=== PATIENT | female | born 1955 | race Caucasian/White ===

== ENCOUNTER 2017-08-21 23:24 | Observation (INO) | payer OTHER ==
[2017-08-21] MEDS ORDERED: Xopenex 1.25 MG/0.5 ML UD NEBULE IH ONE (23:42)
[2017-08-21] MEDS ORDERED: BABY ASPIRIN 81 MG CHEW PO ONE (23:44)
[2017-08-21] MEDS ORDERED: Nitrostat 0.4 MG (ED) SL ONE ×2 (23:44→23:56)
[2017-08-21] MEDS ORDERED: Lactated Ringers 1,000 ML IV SCH (23:45)
--- NOTE | 2017-08-21 23:49 | ERPHSYRPT ---
- History of Present Illness Time Seen by Provider: 08/21/17 23:34 Source: patient Exam Limitations: no limitations Physician History: FOR THE PAST 20 MINUTES PT HAS HAD THROBBING MID ANTERIOR CHEST PAIN RADIATING TO THE BACK, BOTH EARS AND THE JAW WITH SHORTNESS OF AIR AND COUGH. PT DENIES FEVER, NAUSEA, VOMITING, ABDOMINAL PAIN. Allergies/Adverse Reactions: codeine Allergy (Verified 08/22/17 01:27) Penicillins Allergy (Verified 08/22/17 01:27) Sulfa (Sulfonamide Antibiotics) Allergy (Verified 08/22/17 01:27) PTU Allergy (Uncoded 08/22/17 01:27) Home Medications: Calcium Carbonate/Vitamin D3 [Calcium 500-Vit D3 200 Caplet] 1 each PO DAILY 05/25 [History] Diazepam 5 mg [Valium 5 MG] 5 mg PO DAILY 01/22/13 [History] Ergocalciferol (Vitamin D2) [Vitamin D2] 50,000 unit PO Q7D 01/22/13 [History] Levothyroxine Sodium 75 Mcg [Synthroid 75 Mcg] 75 mcg PO DAILY 01/22/13 [ History] Multivits,Th W-Ca,Fe,Oth Min [Spectravite] 1 each PO DAILY 01/22/13 [History] Hx Tetanus, Diphtheria Vaccination/Date Given: Yes Hx Influenza Vaccination/Date Given: No Hx Pneumococcal Vaccination/Date Given: No - Review of Systems Constitutional: No Fever Respiratory: Cough, Dyspnea Cardiac: Chest Pain Abdominal/Gastrointestinal: No Abdominal Pain, No Nausea, No Vomiting Neurological: No Headache All Other Systems: Reviewed and Negative - Past Medical History Pertinent Past Medical History: Yes Neurological History: No Pertinent History ENT History: No Pertinent History Cardiac History: High Cholesterol, Hypertension Respiratory History: Bronchitis Endocrine Medical History: Hyperthyroidism Musculoskeletal History: Arthritis, Degenerative Disk Disease, Osteoporosis GI Medical History: GERD Psycho-Social History: Anxiety Female Reproductive Disorders: No Pertinent History Other Medical History: THYROID STORM 03/2010 - Past Surgical History Past Surgical History: Yes Neuro Surgical History: No Pertinent History Cardiac: No Pertinent History Respiratory: No Pertinent History Gastrointestinal: Appendectomy Genitourinary: No Pertinent History Musculoskeletal: No Pertinent History Female Surgical History: Tubal Ligation Other Surgical History: TA THYROID RADIATION - Social History Smoking Status: Current every day smoker How long have you smoked: 40 years Exposure to second hand smoke: No Drug Use: none Patient Lives Alone: No - Nursing Vital Signs Nursing Vital Signs: Initial Vital Signs Temperature 97.3 F 08/21/17 23:38 Pulse Rate 84 08/21/17 23:38 Respiratory Rate 20 08/21/17 23:38 Blood Pressure 170/79 08/21/17 23:38 O2 Sat by Pulse Oximetry 99 08/21/17 23:38 Pain Scale Pain Intensity 0 - Physical Exam General Appearance: alert Eye Exam: PERRL/EOMI Ears, Nose, Throat Exam: TMs normal, moist mucous membranes, pharyngeal erythema Neck Exam: normal inspection Respiratory Exam: chest tenderness (MILD MID ANTERIOR CHEST TENDERNESS), wheezing (MINIMAL EXPIRATORY WHEEZING OVER POSTERIOR BASES) Cardiovascular Exam: normal heart sounds Gastrointestinal/Abdomen Exam: soft, normal bowel sounds Back Exam: normal range of motion Extremity Exam: pedal edema (+1 EDEMA OF LEFT FOOT) Neurologic Exam: alert, cooperative Skin Exam: warm, dry - Course Nursing assessment & vital signs reviewed: Yes EKG Interpreted by Me: RATE ([id number]), Sinus Rhythm, NORMAL AXIS, NORMAL INTERVALS - Radiology Exams Chest X-ray Interpretation: Interpreted by me, No Pneumonia Ordered Tests: Active Orders 24 hr Category Date Time Status IV Insertion STAT Care 08/21/17 23:42 Active Oxygen-ED Only NASAL CANNULA 2 lpm Care 08/21/17 23:42 Active CHEST 1 VIEW (PORTABLE) Stat Exams 08/21/17 23:42 Taken AMYLASE Stat Lab 08/21/17 23:52 Completed CBC W DIFF Stat Lab 08/21/17 23:52 Completed CMP Stat Lab 08/21/17 23:52 Completed LIPASE Stat Lab 08/21/17 23:52 Completed MAGNESIUM Stat Lab 08/21/17 23:52 Completed NT PRO BNP Stat Lab 08/21/17 23:52 Completed T4 Stat Lab 08/21/17 23:52 Completed TROPONIN Q3H Lab 08/21/17 23:52 Completed TROPONIN Q3H Lab 08/22/17 02:45 Ordered TROPONIN Q3H Lab 08/22/17 05:45 Ordered TROPONIN Q3H Lab 08/22/17 08:45 Ordered TROPONIN Q3H Lab 08/22/17 11:45 Ordered TSH [TSH, 3RD Generation] Stat Lab 08/21/17 23:52 Completed UA W/ MICROSCOPIC Stat Lab 08/21/17 01:18 Completed Medication Summary Generic Name Dose Route Start Last Admin Trade Name Roly PRN Reason Stop Dose Admin Lactated Ringer's 1,000 mls @ 100 mls/hr 08/21/17 23:45 08/21/17 23:58 Lactated Ringers IV 09/20/17 23:44 100 mls/hr .Q10H SP Administration Discontinued Medications Generic Name Dose Route Start Last Admin Trade Name Roly PRN Reason Stop Dose Admin Aspirin 324 mg 08/21/17 23:44 08/21/17 23:59 Baby Aspirin 81 Mg Chew PO 08/21/17 23:45 324 mg STAT ONE Administration Aspirin Confirm 08/21/17 23:56 Baby Aspirin 81 Mg Chew Administered 08/21/17 23:57 Dose 324 mg .ROUTE .STK-MED ONE Levalbuterol HCl 1.25 mg 08/21/17 23:42 Xopenex 1.25 Mg/0.5 Ml Ud Nebule IH 08/21/17 23:43 STAT ONE Levalbuterol HCl Confirm 08/22/17 01:16 Xopenex 1.25 Mg/0.5 Ml Ud Nebule Administered 08/22/17 01:17 Dose 1.25 mg IH .STK-MED ONE Nitroglycerin 0.4 mg 08/21/17 23:44 08/21/17 23:59 Nitrostat 0.4 Mg (Ed) SL 08/21/17 23:45 0.4 mg STAT ONE Administration Nitroglycerin Confirm 08/21/17 23:56 Nitrostat 0.4 Mg (Ed) Administered 08/21/17 23:57 Dose 0.4 mg SL .STK-MED ONE Sodium Chloride Confirm 08/22/17 01:16 Sodium Chloride 3 Ml Ud Nebules Administered 08/22/17 01:17 Dose 3 ml IH .STK-MED ONE Lab/Rad Data: Laboratory Result Diagrams 08/21/17 23:52 08/21/17 23:52 Laboratory Results 08/21/17 08/21/17 08/21/17 Range/Units 23:52 23:52 23:52 WBC (4.0-10.5) K/mm3 RBC (4.1-5.4) M/mm3 Hgb (12.0-16.0) gm/dl Hct (35-47) % MCV (78-100) fl MCH (26-32) pg MCHC (32-36) g/dl RDW (11.5-14.0) % Plt Count (150-450) K/mm3 MPV (6-9.5) fl Gran % (36.0-66.0) % Lymphocytes % (24.0-44.0) % Monocytes % (0.0-12.0) % Eosinophils % (0.00-5.0) % Basophils % (0.0-0.4) % Basophils # (0-0.4) Sodium 140 (137-145) mmol/L Potassium 4.0 (3.5-5.1) mmol/L Chloride 103 (98-107) mEq/L Carbon Dioxide 27 (22-30) mmol/L Anion Gap 13.9 (5-15) MEQ/L BUN 18 H (7-17) mg/dl Creatinine 1.06 H (0.52-1.04) mg/dl Estimated GFR 56 ML/MIN Glucose 124 H (74-106) mg/dL Calcium 9.2 (8.4-10.2) mg/dL Magnesium 2.3 (1.6-2.3) mg/dL Total Bilirubin 0.20 (0.2-1.3) mg/d? AST 71 H (14-36) U/L ALT 72 H (0-35) U/L Alkaline Phosphatase 174 H (38-126) U/L Troponin I < 0.012 (0.000-0.034) ng/ml NT-Pro-B Natriuret Pep 47.9 (0-900) pg/ml Serum Total Protein 6.9 (6.3-8.2) mg/dl Albumin 3.8 (3.5-5.0) g/dl Amylase 64 (30-110) U/L Lipase 77 (23-300) U/L Thyroxine (T4) 8.84 (5.53-10.96) ug/dL TSH 3rd Generation 4.020 (0.47-4.68) mIU/L Ur Collection Type Urine Color (YELLOW) Urine Appearance (CLEAR) Urine pH (5-6) Ur Specific [place] (1.005-1.025) Urine Protein (Negative) Urine Ketones (NEGATIVE) Urine Blood (0-5) Naren/ul Urine Nitrite (NEGATIVE) Urine Bilirubin (NEGATIVE) Urine Urobilinogen (0-1) mg/dL Ur Leukocyte Esterase (NEGATIVE) Urine Microscopic RBC (0-2) /HPF Urine Microscopic WBC (0-5) /HPF Ur Epithelial Cells (FEW) /HPF Urine Bacteria (NEGATIVE) /HPF Urine Culture Reflexed (NO) Urine Glucose (NEGATIVE) mg/dL Specimen Received 08/21/17 08/21/17 Range/Units 23:52 01:18 WBC 11.8 H (4.0-10.5) K/mm3 RBC 4.35 (4.1-5.4) M/mm3 Hgb 13.6 (12.0-16.0) gm/dl Hct 41.7 (35-47) % MCV 95.9 (78-100) fl MCH 31.3 (26-32) pg MCHC 32.6 (32-36) g/dl RDW 14.0 (11.5-14.0) % Plt Count 234 (150-450) K/mm3 MPV 9.8 H (6-9.5) fl Gran % 60.1 (36.0-66.0) % Lymphocytes % 30.1 (24.0-44.0) % Monocytes % 7.7 (0.0-12.0) % Eosinophils % 1.9 (0.00-5.0) % Basophils % 0.2 (0.0-0.4) % Basophils # 0.02 (0-0.4) Sodium (137-145) mmol/L Potassium (3.5-5.1) mmol/L Chloride (98-107) mEq/L Carbon Dioxide (22-30) mmol/L Anion Gap (5-15) MEQ/L BUN (7-17) mg/dl Creatinine (0.52-1.04) mg/dl Estimated GFR ML/MIN Glucose (74-106) mg/dL Calcium (8.4-10.2) mg/dL Magnesium (1.6-2.3) mg/dL Total Bilirubin (0.2-1.3) mg/d? AST (14-36) U/L ALT (0-35) U/L Alkaline Phosphatase (38-126) U/L Troponin I (0.000-0.034) ng/ml NT-Pro-B Natriuret Pep (0-900) pg/ml Serum Total Protein (6.3-8.2) mg/dl Albumin (3.5-5.0) g/dl Amylase (30-110) U/L Lipase (23-300) U/L Thyroxine (T4) (5.53-10.96) ug/dL TSH 3rd Generation (0.47-4.68) mIU/L Ur Collection Type VOID Urine Color YELLOW (YELLOW) Urine Appearance CLEAR (CLEAR) Urine pH 6.0 (5-6) Ur Specific [place] 1.015 (1.005-1.025) Urine Protein NEGATIVE (Negative) Urine Ketones NEGATIVE (NEGATIVE) Urine Blood NEGATIVE (0-5) Naren/ul Urine Nitrite NEGATIVE (NEGATIVE) Urine Bilirubin NEGATIVE (NEGATIVE) Urine Urobilinogen NORMAL (0-1) mg/dL Ur Leukocyte Esterase 1+ (NEGATIVE) Urine Microscopic RBC 0-2 (0-2) /HPF Urine Microscopic WBC 2-5 (0-5) /HPF Ur Epithelial Cells MODERATE (FEW) /HPF Urine Bacteria FEW (NEGATIVE) /HPF Urine Culture Reflexed NO (NO) Urine Glucose NEGATIVE (NEGATIVE) mg/dL Specimen Received 08/22/17 0120 - Progress Discussed with : Chava (OBS - [id number]) - Departure Time of Disposition: 01:42 Departure Disposition: Observation Clinical Impression: CHEST PAIN, ELEVATED LFT'S, BRONCHITIS, ARTHRITIS, GERD, ANXIETY, HTN Condition: Stable Critical Care Time: No Referrals: BELKYS MADRID [Primary Care Provider] -
[2017-08-21 23:56] LABS: BASOPHIL % 0.2 % (0.0-0.4); Basophil (Absolute #) 0.02 (0-0.4); Eosinophil % 1.9 % (0.00-5.0); Eosinophil (Absolute #) 0.22 (0-0.5); Granulocyte Absolute (ANC) 7.08 (1.4-6.9); Granulocytes % 60.1 % (36.0-66.0); Hematocrit 41.7 % (35-47); Hemoglobin 13.6 gm/dl (12.0-16.0); Lymphocyte (Absolute #) 3.54 (1.0-4.6); Lymphocytes % 30.1 % (24.0-44.0); Mean Cell Volume 95.9 fl (78-100); Mean Corpuscular Hemoglobin 31.3 pg (26-32); Mean Corpuscular Hgb Concent. 32.6 g/dl (32-36); Mean Platelet Volume 9.8 fl (6-9.5); Monocytes % 7.7 % (0.0-12.0); Platelet Count 234 K/mm3 (150-450); Red Blood Count 4.35 M/mm3 (4.1-5.4); White Blood Count 11.8 K/mm3 (4.0-10.5)
[2017-08-21] MEDS ORDERED: BABY ASPIRIN 81 MG CHEW ONE (23:56)
[2017-08-21] MEDS ORDERED: Lactated Ringers 1,000 ML IV ONE (23:56)
[2017-08-22 00:19] LABS: ALBUMIN 3.8 g/dl (3.5-5.0); ANION GAP 13.9 MEQ/L (5-15); BILIRUBIN,TOTAL 0.2 mg/d? (0.2-1.3); Calcium 9.2 mg/dL (8.4-10.2); Creatinine 1 1.06 mg/dl (0.52-1.04); Total Protein 6.9 mg/dl (6.3-8.2)
[2017-08-22 00:28] LABS: NT PRO BNP 47.9 pg/ml (0-900)
[2017-08-22 00:50] LABS: TSH, 3RD Generation 4.02 mIU/L (0.47-4.68)
[2017-08-22 01:04] LABS: T4 8.84 ug/dL (5.53-10.96)
[2017-08-22] MEDS ORDERED: Sodium Chloride 3 ML UD NEBULES IH ONE (01:16)
[2017-08-22] MEDS ORDERED: Xopenex 1.25 MG/0.5 ML UD NEBULE IH ONE (01:16)
[2017-08-22 01:33] LABS: Appearance CLEAR (CLEAR); Bilirubin NEGATIVE (NEGATIVE); Blood NEGATIVE Ery/ul (0-5); Glucose NEGATIVE (NEGATIVE); Ketones NEGATIVE (NEGATIVE); Leukocyte Esterase 1+ (NEGATIVE); Nitrite NEGATIVE (NEGATIVE); Protein,Urine Dip NEGATIVE (Negative); Specific Gravity 1.015 (1.005-1.025); Urobilinogen NORMAL mg/dL (0-1)
[2017-08-22 01:34] LABS: Bacteria FEW /HPF (NEGATIVE); Epithelial Cells MODERATE /HPF (FEW)
[2017-08-22] MEDS ORDERED: TYLENOL 325 MG PO PRN (02:16)
[2017-08-22] MEDS ORDERED: Nitrostat 0.4 MG Tablet SL PRN ×2 (02:16→09:32)
[2017-08-22] MEDS ORDERED: Robitussin-Dm Syrup PO PRN (02:16)
[2017-08-22] MEDS ORDERED: Phenergan 25 MG INJ IV PRN (02:16)
[2017-08-22] MEDS ORDERED: Sodium Chloride 0.9% 1000 ML 1,000 ML IV SCH (02:16)
[2017-08-22 05:58] LABS: ALKALINE PHOSPHATASE 130 U/L (38-126); ANION GAP 10.1 MEQ/L (5-15); BLOOD UREA NITROGEN 15 mg/dl (7-17); CHLORIDE 108 mEq/L (98-107); Calcium 8.9 mg/dL (8.4-10.2); Carbon Dioxide 28 mmol/L (22-30); Creatinine 1 0.89 mg/dl (0.52-1.04); Glucose 93 mg/dL (74-106); Potassium 4.3 mmol/L (3.5-5.1); SGOT/AST 49 U/L (14-36); SGPT/ALT 63 U/L (0-35); SODIUM 141 mmol/L (137-145); Total Protein 5.4 mg/dl (6.3-8.2)
[2017-08-22 05:59] LABS: BASOPHIL % 0.2 % (0.0-0.4); Basophil (Absolute #) 0.02 (0-0.4); Eosinophil % 1.7 % (0.00-5.0); Eosinophil (Absolute #) 0.15 (0-0.5); Granulocyte Absolute (ANC) 5.54 (1.4-6.9); Granulocytes % 63.6 % (36.0-66.0); Hematocrit 37.3 % (35-47); Hemoglobin 12.2 gm/dl (12.0-16.0); Lymphocyte (Absolute #) 2.19 (1.0-4.6); Lymphocytes % 25.1 % (24.0-44.0); Mean Cell Volume 96.6 fl (78-100); Mean Corpuscular Hemoglobin 31.6 pg (26-32); Mean Corpuscular Hgb Concent. 32.7 g/dl (32-36); Monocyte (Absolute #) 0.82 (0.0-1.3); Monocytes % 9.4 % (0.0-12.0); Platelet Count 198 K/mm3 (150-450); Red Blood Count 3.86 M/mm3 (4.1-5.4); Red Cell Distribution Width 13.9 % (11.5-14.0); White Blood Count 8.7 K/mm3 (4.0-10.5)
[2017-08-22] MEDS ORDERED: DUONEB 0.5-3 MG/3 ml Neb IH ONE (06:42)
[2017-08-22] MEDS: PROVENTIL 2.5 MG/3 ML NEB IH SCH ×2 (07:05→07:31)
--- NOTE | 2017-08-22 09:10 | XRAY ---
Indication: Chest pain. Comparison: August 17, 2017. Portable chest unchanged again hyperinflated with lingular atelectasis/scarring and a few subcarinal calcified nodes. Remaining heart and lungs normal. No new/acute findings.
[2017-08-22] MEDS ORDERED: SYNTHROID 88 MCG PO SCH (09:30)
[2017-08-22] MEDS ORDERED: Valium 5 MG PO PRN (09:32)
[2017-08-22] MEDS ORDERED: Zithromax 250 MG TABLET PO SCH (10:00)
[2017-08-22] MEDS ORDERED: NON-FORMULARY ITEM (Albuterol Sulfate Mdi*** 1 PUFF) IH SCH (10:00)
[2017-08-22] MEDS ORDERED: [UNRECOGNIZED DRUG - OTHER] PO SCH (10:00)
[2017-08-22] MEDS ORDERED: THERAGRAN MULTIVITAMIN PO SCH (10:00)
[2017-08-22] MEDS ORDERED: Calcium 500MG W/Vit D Tablet PO SCH (10:00)
[2017-08-22] MEDS ORDERED: Zetia 10 MG PO SCH (10:00)
[2017-08-22] MEDS ORDERED: ENOXAPARIN SODIUM SQ SCH (10:00)
[2017-08-22] MEDS ORDERED: VITAMIN D2 PO SCH (10:00)
--- NOTE | 2017-08-22 10:52 | XRAY ---
Indication: Left leg swelling. Two-dimensional sonogram and color Doppler imaging of the major venous vessels of the left leg was performed. Comparison: None No thrombus seen in the examined deep venous vessels of the left leg including greater saphenous vein. Veins demonstrate normal compressibility. Venous waveforms are normal with and without augmentation. Impression: Left leg negative for DVT.
[2017-08-22 10:58] VITALS: BP 155/69; PULSE 77; O2SAT 97
[2017-08-22] MEDS ORDERED: PROVENTIL COMMON CANISTER IH SCH (11:00)
[2017-08-23 06:25] LABS: HEPATITIS B VIRUS CORE TOT AB Non Reactive (Non Reactive); HEPATITIS C VIRUS ANTIBODY Non Reactive (Non Reactive); Hepatitis B Surface Antigen Non Reactive (Non Reactive)
--- NOTE | 2017-08-23 10:13 | SSS ---
DISCHARGE DIAGNOSIS: CHEST PAIN. HISTORY OF PRESENT ILLNESS: The patient is a 62 year-old white female who reports she had some throbbing chest discomfort lasting approximately 30 minutes. She reports that it did radiate into her neck and into her back. The patient has no known history of coronary artery disease. She however presented to the emergency room and was admitted to the hospital to rule out myocardial infarction. PAST MEDICAL/SURGICAL HISTORY: Essentially unremarkable. PHYSICAL EXAMINATION: Revealed a well nourished, well developed 62 year-old white female in no obvious distress. HEENT: Normocephalic, atraumatic. Pupils equal round reactive to light. Extraocular movements intact. Oropharynx is pink and moist. NECK: Supple without lymphadenopathy, thyromegaly or JVD. CHEST: Clear to auscultation with good air movement bilaterally. HEART: Regular rate and rhythm without murmurs, rubs or gallops. ABDOMEN: Soft, nontender, nondistended without hepatosplenomegaly or masses. EXTREMITIES: Without clubbing, cyanosis or edema. NEUROLOGIC: The patient is alert and oriented x3. No focal deficits are noted. LAB DATA AND TESTS: Revealed the patient to have four different troponins of less than 0.012. Her CBC and CMP were essentially normal other than slight elevation in her liver enzymes. We will be checking the patient's hepatitis panel. She did have a D-dimer performed which was negative. The patient had venous Doppler performed of left lower extremity due to complaints of chronic edema there and this was negative as well. HOSPITAL COURSE: Having ruled out for myocardial infarction the patient was allowed to be discharged home with instructions to follow up in the office in one week at which time we will consider obtaining cardiology consultation for further evaluation of the chest discomfort. She is to return to the hospital if she has any exacerbation of the chest pain in the interim.
== END 2017-08-22 11:35 | disposition home or self-care (01) ==
LOC: ED 23:24 → MED SURG 08-22 02:03
PROVIDERS: ADMIT Family Medicine; ATTEND Family Medicine
DX: R07.9 Chest pain, unspecified (principal); Z86.79 Personal history of other diseases of the circulatory system
CPT/HCPCS: 36000; 36415; 71045; 80053; 80074; 81000; 82150; 83690; 83735; 83880; 84436; 84443; 84484; 85025; 85379; 93005; 93268; 93971; 94640; 94760; 96360; 99285; G0378; J1650; A9270-GY